=== PATIENT | male | born 1975 | race Caucasian/White ===

== ENCOUNTER 2016-11-24 12:36 | Emergency (ER) | payer BC ==
[2016-11-24 12:45] VITALS: O2SAT 97
[2016-11-24] MEDS ORDERED: Sodium Chloride 0.9% 1000 ML 1,000 ML IV STA (12:54)
[2016-11-24] MEDS ORDERED: Sodium Chloride 0.9% 1000 ML 1,000 ML ONE (12:58)
[2016-11-24 13:03] LABS: BASOPHIL % 1.1 % (0.0-0.4); Granulocytes % 55.4 % (36.0-66.0); Lymphocytes % 29.7 % (24.0-44.0); Mean Cell Volume 90.9 fl (78-100); Mean Corpuscular Hemoglobin 30.7 pg (26-32); Mean Platelet Volume 9.3 fl (6-9.5); Monocytes % 9.8 % (0.0-12.0); Platelet Count 289 K/mm3 (150-450); Red Blood Count 4.73 M/mm3 (4.1-5.6); Red Cell Distribution Width 13.9 % (11.5-14.0); White Blood Count 6.5 K/mm3 (4.0-10.5)
--- NOTE | 2016-11-24 13:09 | ERPHSYRPT ---
- History of Present Illness Time Seen by Provider: 11/24/16 13:05 Source: patient Exam Limitations: no limitations Patient Subjective Stated Complaint: wAS AT WORK BEGAN HAVING HEADACHE, THEN TINGLING IN LEFT ARM AND HAVING TROUBLE REMEMBERING WHAT HE WAS DOING Triage Nursing Assessment: PT ALERT AND ORIENTED HANDGRIPS EQUAL BILATERAL, SMILE SYMETRICAL , PULSES EQUAL BIALTERAL RADIUS, LUNG SOUNDS CLEAR, ABLE TO STATE CANT TEACH OLD DOG NEW TRICKS. HEADACHE HAS GONE AWAY, TINGLING AND NUMBNESS IN LEFT ARM STILL PRESENT Physician History: 41-year-old male came to the emergency room with complaining of new onset of headache approximately one hour ago, associated with tingling and numbness around the lips and tingling and numbness in the both hands. He denies any weakness, any chest pain, shortness of breath, fall blurred vision. Patient does not have any other significant past medical history on family history for heart disease or stroke. Patient does not smoke or drink alcohol. Timing/Duration: today Severity: mild Character of Deficits: altered sensation Deficits: no difficulties Baseline/Normal Cognition: alert oriented x 3 Current Cognition: alert oriented x 3 Baseline Gait: walks w/o assistance Associated Symptoms: numbness/tingling in legs/feet, paresthesia, headache, No confusion, No fever, No chills, No loss of consciousness, No nausea, No vomiting , No weakness, No muscle spasms, No ringing in ears, No seizures, No slurred speech, No trouble walking, No vision changes, No chest pain Allergies/Adverse Reactions: No Known Drug Allergies Allergy (Unverified 05/19/16 12:50) Home Medications: Bupropion HCl Xl 150 mg [Wellbutrin XL 150 MG] 150 mg PO DAILY 05/19/16 [ History] Omeprazole Magnesium [Prilosec Otc] 20 mg PO DAILY PRN PRN 05/19/16 [History] Hx Tetanus, Diphtheria Vaccination/Date Given: Yes Hx Influenza Vaccination/Date Given: Yes Hx Pneumococcal Vaccination/Date Given: No Immunizations Up to Date: Yes - Review of Systems Constitutional: No Fever, No Chills Eyes: No Symptoms Ears, Nose, & Throat: No Symptoms Respiratory: No Cough, No Dyspnea Cardiac: No Chest Pain, No Edema, No Syncope Abdominal/Gastrointestinal: No Abdominal Pain, No Nausea, No Vomiting, No Diarrhea Genitourinary Symptoms: No Dysuria Musculoskeletal: No Back Pain, No Neck Pain Skin: No Rash Neurological: Parasthesia, Sensory Changes, No Dizziness, No Focal Weakness, No Gait Changes, No Headache, No Irritability, No Lethargy, No Paralysis, No Seizure, No Speech Changes, No Tremors, No Vertigo Psychological: No Symptoms Endocrine: No Symptoms All Other Systems: Reviewed and Negative - Past Medical History Pertinent Past Medical History: Yes Psycho-Social History: Depression - Past Surgical History Past Surgical History: Yes Other Surgical History: t&a - Social History Smoking Status: Never smoker Exposure to second hand smoke: No Drug Use: none Patient Lives Alone: No - Nursing Vital Signs Nursing Vital Signs: Initial Vital Signs Temperature 97.3 F Temperature Source Oral Pulse Rate 68 Respiratory Rate 20 Blood Pressure [] 128/74 Pain Intensity 4 - Kris Coma Scale Best Eye Response ([place]): (4) open spontaneously Best Verbal Response ([place]): (5) oriented Best Motor Response ([place]): (6) obeys commands [place] Total: 15 - Physical Exam General Appearance: no apparent distress, alert Eye Exam: bilateral eye: PERRL, EOMI Ears, Nose, Throat Exam: normal ENT inspection, moist mucous membranes Neck Exam: normal inspection, non-tender, supple Respiratory: normal breath sounds, lungs clear, airway intact, No respiratory distress Cardiovascular: regular rate/rhythm, No edema Gastrointestinal: soft, No tenderness, No distention Back Exam: normal inspection Extremity Exam: normal inspection, No pedal edema Mental Status: alert, oriented x 3, cooperative distribution center associate Exam: normal speech, PERRL, facial paresthesias, tongue midline, No facial asymmetry, No facial droop, No facial weakness Coordination/Gait: normal finger to nose, normal gait Motor/Sensory: no motor deficit DTR: bicep (R): 3+, bicep (L): 3+, tricep (R): 3+, tricep (L): 3+, knee (R): 3+ , knee (L): 3+, ankle (R): 3+, ankle (L): 3+ Skin Exam: normal color, warm, dry, No rash SpO2 Interpretation: normal SpO2: 97 Oxygen Delivery: Room Air - Course Nursing assessment & vital signs reviewed: Yes EKG Interpreted by Me: Sinus Rhythm - Radiology Exams Chest X-ray Interpretation: Discussed w/ radiologist (normal, (Br. Raffy Forte)), Negative - CT Exams Head CT Interpretation: Tele-radiologist Report Ordered Tests: Active Orders 24 hr Category Date Time Status Log Operations Coordinator STAT Care 11/24/16 12:55 Active EKG-ER Only STAT Care 11/24/16 12:54 Active IV Insertion STAT Care 11/24/16 12:55 Active Oxygen-ED Only NASAL CANNULA 2 lpm Care 11/24/16 12:52 Active CHEST 1 VIEW (PORTABLE) Stat Exams 11/24/16 12:53 Taken HEAD WITHOUT CONTRAST [CT] Stat Exams 11/24/16 12:53 Taken CBC W DIFF Stat Lab 11/24/16 13:02 Completed CMP Stat Lab 11/24/16 13:02 Completed TROPONIN Stat Lab 11/24/16 13:02 Completed Medication Summary Generic Name Dose Route Start Last Admin Trade Name Freq PRN Reason Stop Dose Admin Sodium Chloride 1,000 mls @ 999 mls/hr 11/24/16 12:54 11/24/16 13:00 Sodium Chloride 0.9% 1000 Ml IV 11/24/16 13:54 999 mls/hr .Q1H1M STA Administration Discontinued Medications Generic Name Dose Route Start Last Admin Trade Name Freq PRN Reason Stop Dose Admin Sodium Chloride Confirm 11/24/16 12:58 Sodium Chloride 0.9% 1000 Ml Administered 11/24/16 12:59 Dose 1,000 mls @ ud .ROUTE .STK-MED ONE Ketorolac Tromethamine Confirm 11/24/16 13:38 Toradol 30 Mg Injection Administered 11/24/16 13:39 Dose 30 mg .ROUTE .STK-MED ONE Lab/Rad Data: Laboratory Result Diagrams 11/24/16 13:02 11/24/16 13:02 Laboratory Results 11/24/16 11/24/16 11/24/16 Range/Units 13:02 13:02 13:02 WBC 6.5 (4.0-10.5) K/mm3 RBC 4.73 (4.1-5.6) M/mm3 Hgb 14.5 (12.5-18.0) gm/dl Hct 43.0 (42-50) % MCV 90.9 (78-100) fl MCH 30.7 (26-32) pg MCHC 33.7 (32-36) g/dl RDW 13.9 (11.5-14.0) % Plt Count 289 (150-450) K/mm3 MPV 9.3 (6-9.5) fl Gran % 55.4 (36.0-66.0) % Lymphocytes % 29.7 (24.0-44.0) % Monocytes % 9.8 (0.0-12.0) % Eosinophils % 4.0 (0.00-5.0) % Basophils % 1.1 (0.0-0.4) % Basophils # 0.07 (0-0.4) Sodium 142 (136-145) mEq/L Potassium 4.0 (3.5-5.1) mEq/L Chloride 105 (98-107) mEq/L Carbon Dioxide 27.4 (21-32) mEq/L Anion Gap 13.6 (5-15) MEQ/L BUN 14 (9-20) mg/dL Creatinine 1.04 (0.55-1.30) mg/dl Estimated GFR > 60 ML/MIN Glucose 104 (70-110) MG/DL Calcium 8.7 (8.5-10.1) mg/dL Total Bilirubin 0.4 (0.2-1.0) mg/dL AST 20 (15-37) U/L ALT 39 (12-78) U/L Alkaline Phosphatase 67 (46-116) U/L Troponin I < 0.017 (0.000-0.056) ng/ml Serum Total Protein 7.9 (6.4-8.2) gm/dL Albumin 4.3 (3.4-5.0) g/dL - Progress Progress: improved Counseled pt/family regarding: lab results, diagnosis, need for follow-up, rad results - Departure Time of Disposition: 13:36 Departure Disposition: Home Clinical Impression: Facial paresthesia, Paresthesia of both hands Headache Qualifiers: Headache type: unspecified Headache chronicity pattern: acute headache Intractability: not intractable Qualified Code(s): R51 - Headache Condition: Stable Critical Care Time: Yes Critical Care Time(excluding separately billable procedures): 30-74 minutes Referrals: HOSPITAL,'S [Primary Care Provider] - Instructions: Numbness/tingling, Headache Additional Instructions: HEADACHE 1. After discharge from the emergency department, you should rest at home in a cool, dark, quiet place for 12-24 hours. 2. If any of the following signs or symptoms are noticed, you should be re- evaluated right away: A. Visual changes B. Stiff Neck C. Change in quality or location of pain D. Fever E. Recurrent vomiting 3. If pain medications were prescribed or given, they may cause drowsiness. Please follow the instructions given to you. Please take your medication as prescribed if given. If symptoms recur or get worse, come back to the emergency room if you cannot reach your primary care physician, or call your primary care physician for an appointment. Again if your symptoms get worse, come back to the emergency room. Thanks for visiting emergency room, and let us take care of you. Forms: Work/School Release Form Prescriptions: Naproxen 375 mg [Naprosyn 375 mg] 375 mg PO Q8H #30 tablet
[2016-11-24 13:18] LABS: ALBUMIN 4.3 g/dL (3.4-5.0); ALKALINE PHOSPHATASE 67 U/L (46-116); ANION GAP 13.6 MEQ/L (5-15); BILIRUBIN,TOTAL 0.4 mg/dL (0.2-1.0); BLOOD UREA NITROGEN 14 mg/dL (9-20); CHLORIDE 105 mEq/L (98-107); Carbon Dioxide 27.4 mEq/L (21-32); Glucose 104 MG/DL (70-110); SGOT/AST 20 U/L (15-37); SGPT/ALT 39 U/L (12-78); SODIUM 142 mEq/L (136-145); Total Protein 7.9 gm/dL (6.4-8.2)
[2016-11-24 13:37] VITALS: BP 128/74; PULSE 68
[2016-11-24] MEDS ORDERED: TORAdol 30 mg Injection ONE (13:38)
[2016-11-24] MEDS ORDERED: TORAdol 30 mg Injection IV ONE (13:57)
--- NOTE | 2016-11-24 22:15 | XRAY ---
Indication: Left facial and left hand numbness. Headache. Multiple contiguous axial images obtained through the head without contrast. Comparison: None Normal appearing brain parenchyma, ventricles, and bony calvarium. Visualized paranasal sinuses and mastoid air cells are pneumatized and clear. Impression: Normal CT head without contrast exam. CTDI 70.21
--- NOTE | 2016-11-24 22:20 | XRAY ---
Indication: Numbness and tingling around lips and left hand. Comparison: None Single AP chest demonstrates normal heart, lungs, and bony thorax. Tiny radiopaque foreign body overlies left mid chest.
== END 2016-11-24 13:52 | disposition home or self-care (01) ==
LOC: ED 12:36
DX: R51 Headache (principal); R20.9 Unspecified disturbances of skin sensation
CPT/HCPCS: 36000; 36415; 70450; 71010; 80053; 84484; 85025; 93005; 93041; 96360; 96374; 99284; J1885